=== PATIENT | male | born 1990 | race Caucasian/White ===

== ENCOUNTER 2023-06-15 09:41 | Emergency (ER) | payer MEDICAID, OTHER ==
[~2023-06-15] VITALS: Ht 177.8 cm; Wt 99.8 kg
[2023-06-15 09:42] VITALS: PULSE 73; RESP 19
[2023-06-15 09:45] VITALS: BP 138/78; TEMP 98.5; O2SAT 98
[2023-06-15] MEDS ORDERED: TETANUS, DIPHTHERIA, PERTUSSIS VAC/PF 0.5ML (>10YR OLD) IM ONE ×2 (10:30→12:30)
[2023-06-15] MEDS ORDERED: LIDOCAINE HCL/PF 1% 10 MG/ML 5ML VIAL INFIL ONE (10:30)
[2023-06-15] MEDS ORDERED: BACITRACIN ZINC OINT UDPKT TOP ONE (10:30)
[2023-06-15] MEDS ORDERED: BACITRACIN ZINC OINT UDPKT TOP SCH (12:30)
[2023-06-15] MEDS: LIDOCAINE HCL/PF 1% 10 MG/ML 5ML VIAL INFIL SCH ×2 (12:30→13:17)
[2023-06-15] MEDS ORDERED: CEPH500C2 MT (14:02)
[2023-06-15] MEDS ORDERED: SULF1TAB48 MT (14:02)
== END 2023-06-15 14:11 | disposition home or self-care (01) ==
LOC: ER 09:41
DX: L05.01 Pilonidal cyst with abscess (principal)
CPT/HCPCS: 90715; 10060; 90471; 99283; J3490; Z7610 ×4